=== PATIENT | female | born 1985 | race Caucasian/White ===

== ENCOUNTER 2022-11-19 17:52 | Inpatient (IN) | payer BC ==
[~2022-11-19 17:52] MED LIST: Iopamidol 300 61% 100 ML VIAL FS ONE
[2022-11-19 19:39] LABS: Hematocrit 41.3 % (34.9-44.5); Hemoglobin 14.6 g/dL (12.0-15.5); Mean Corpuscular HGB CONC 35.4 g/dL (32.0-36.0); Mean Corpuscular Hemoglobin 29.1 pg (27.0-33.0); Mean Corpuscular Volume 82.4 fl (81.6-98.3); Mean Platelet Volume 10.4 fl (7.4-10.4); Platelet Count 93 10x3/uL (150-450); RBC Distribution Width 12.5 % (11.5-14.5); Red Blood Cell (RBC) Count 5.01 10x6/uL (3.90-5.03); White Blood Cell (WBC) Count 1.8 10x3/uL (3.5-10.5)
[2022-11-19 19:43] LABS: Bilirubin Neg (Negative); Blood, Urine Negative (Negative); Clarity Clear (Clear); Glucose, Urine (Dipstick) Normal (Negative); Ketone, Urine 50 mg/dL (Negative); Leukocyte Negative (Negative); Nitrite Negative (Negative); Protein, Urine (Dipstick) 15 mg/dl (Neg-Trace); Specific Gravity, Urine 1.015 (1.005-1.030); Urobilinogen Normal mg/dL (Less than 2)
[2022-11-19 19:44] LABS: ALT (SGPT) 136 U/L (8-55); AST (SGOT) 144 U/L (5-34); Alkaline Phosphatase 65 U/L (40-110); Anion Gap 13 mmol/L (10-20); BUN (Urea Nitrogen) 6 mg/dL (7.0-18.7); Bilirubin, Total 0.4 mg/dL (0.2-1.2); Calc. Creatinine Clearance 0 mL/min (70-130); Calcium 8.3 mg/dL (7.8-10.44); Carbon Dioxide 21 mmol/L (22-29); Chloride 102 mmol/L (98-107); Estimated GFR 107; Globulin 2.2 g/dL (2.4-3.5); Glucose 84 mg/dL (70-105); Potassium 3.2 mmol/L (3.5-5.1); Protein, Total 6.2 g/dL (6.0-8.3); Sodium 133 mmol/L (136-145)
[2022-11-19] MEDS ORDERED: Ketorolac Tromethamine 30 MG/ML VIAL ONE (19:44)
[2022-11-19] MEDS ORDERED: Piperacillin/Tazobactam 4.5 GM VIAL ONE (19:45)
[2022-11-19 19:53] LABS: Bacteria/HPF 2+ HPF (None Seen); CAUTI Indications for Culture Fever or rigors; RBC/HPF 0-3 HPF (0-3); Squamous Epithelial 0-3 HPF (0-3); WBC/HPF 0-3 HPF (0-3)
[2022-11-19 19:54] LABS: Urine Culture Reflex No No
[2022-11-19 20:03] LABS: BHCG - Serum Negative (NEGATIVE); Pregs Control Background? CLEAR/WHITE (CLR/WHITE); Pregs Control Bar Appear? YES (CONTROL BAR)
[2022-11-19 20:06] LABS: MDiff Complete? YES
[2022-11-19 20:13] LABS: Eosinophils 7 % (0-10); Lymphocytes 16 % (21-51); Neutrophil 53 % (42-75); Reactive Lymphocytes 6 % (0-10)
[2022-11-19 20:14] LABS: Band 12 % (5-11); Monocytes 6 % (0-10)
[2022-11-19] MEDS ORDERED: Vancomycin 1.5 GRAM/300 ML BAG 1.5 GM in Premix Bag 1 BAG IVPB SCH (20:15)
[2022-11-19 20:19] LABS: Platelet Adequacy Comment Appears Decreased; RBC Morph Comment Within Normal Limits
[2022-11-19 20:23] LABS: Reflex for Review?? YES
[2022-11-19 20:24] LABS: SARS-CoV-2 NAA Rapid Test Not Detected (NotDetected)
[2022-11-19 20:57] LABS: MONO NEGATIVE CONTROL ZONE White (Negative) (White); MONO POSITIVE CONTROL Pink Line (Positive) (PINK/RED); Mononucleosis NEGATIVE (NEGATIVE)
[2022-11-19] MEDS ORDERED: Calcium Carbonate 500 MG ChewTAB PO PRN (21:57)
[2022-11-19] MEDS ORDERED: Ibuprofen 400 MG TAB PO PRN (22:06)
[2022-11-19 22:27] VITALS: BMI 30.5
[2022-11-19] MEDS ORDERED: Potassium Chloride 20 MEQ TAB PO SCH (22:30)
[2022-11-19] MEDS: Lactated Ringer's 1,000 ML IV SCH (22:41)
[2022-11-19 22:55] LABS: Acetaminophen Less than 10 mcg/mL (10.0-30.0)
[2022-11-19] MEDS: Azithromycin 500 MG in Sodium Chloride 0.9% 250 ML 250 ML IVPB SCH (23:38)
[2022-11-20 00:01] LABS: HIV (1/2) Antibody/Antigen Non-Reactive (NonReactive); HIV 1/2 INDEX 0.11 S/CO (<1.00)
[2022-11-20 03:48] LABS: #Monocytes 0.2 10x3/uL (0.0-1.1); #Neutrophils 1.3 10x3/uL (1.5-8.4); %Basophils 0.5 % (0.0-2.0); %Eosinophils 1.9 % (0.0-6.0); %Lymphocytes 25.7 % (18.0-47.0); %Monocytes 7.3 % (0.0-10.0); %Neutrophils 63.6 % (40.0-75.0); Hematocrit 42.2 % (34.9-44.5); Hemoglobin 14.6 g/dL (12.0-15.5); Mean Corpuscular HGB CONC 34.8 g/dL (32.0-36.0); Mean Corpuscular Hemoglobin 29.6 pg (27.0-33.0); Mean Platelet Volume 10.7 fl (7.4-10.4); Platelet Count 70 10x3/uL (150-450); RBC Distribution Width 12.6 % (11.5-14.5); Red Blood Cell (RBC) Count 4.94 10x6/uL (3.90-5.03); White Blood Cell (WBC) Count 2.1 10x3/uL (3.5-10.5)
[2022-11-20 03:55] LABS: ALT (SGPT) 151 U/L (8-55); AST (SGOT) 158 U/L (5-34); Albumin 3.8 g/dL (3.5-5.0); Alkaline Phosphatase 61 U/L (40-110); Anion Gap 12 mmol/L (10-20); BUN (Urea Nitrogen) 6 mg/dL (7.0-18.7); Bilirubin, Total 0.4 mg/dL (0.2-1.2); Calc. Creatinine Clearance 174 mL/min (70-130); Calcium 7.8 mg/dL (7.8-10.44); Carbon Dioxide 23 mmol/L (22-29); Chloride 107 mmol/L (98-107); Estimated GFR 114; Globulin 1.8 g/dL (2.4-3.5); Glucose 73 mg/dL (70-105); Lipase 115 U/L (8-78); Potassium 3.2 mmol/L (3.5-5.1); Protein, Total 5.6 g/dL (6.0-8.3); Sodium 139 mmol/L (136-145)
[2022-11-20] MEDS: metroNIDAZOLE 500 MG in Premix Bag 1 BAG IVPB SCH ×3 (05:28→22:37)
[2022-11-20] MEDS: Ondansetron PF 4 MG/2 ML Vial IVP PRN (06:54)
[2022-11-20] MEDS ORDERED: Morphine 2 MG/ML VIAL SLOW IVP SCH ×2 (07:15)
[2022-11-20] MEDS ORDERED: Famotidine/PF 20 mg/2ml Vial SLOW IVP SCH (09:00)
[2022-11-20] MEDS: Piperacillin/Tazobactam 3.375 GM in Sodium Chloride 0.9% 100 ML IVPB SCH ×2 (09:20→18:17)
[2022-11-20] MEDS: traMADol HCl 50 MG TAB PO PRN ×2 (09:21→16:22)
[2022-11-20] MEDS: Pregabalin 50 MG CAP PO SCH (09:21)
[2022-11-20] MEDS: DULoxetine 20 MG CAP PO SCH (09:21)
[2022-11-20] MEDS: Pantoprazole 40 MG VIAL IVP SCH (09:22)
[2022-11-20] MEDS: Lactated Ringer's 1,000 ML IV SCH ×3 (09:22→22:37)
[2022-11-20] MEDS ORDERED: Dicyclomine 20 MG TAB PO PRN (10:35)
[2022-11-20 14:05] LABS: HBCM Index 0.05 S/CO (0-0.79); Hep A IgM AB Non-Reactive S/CO (NonReactive); Hep A IgM S/CO 0.23 S/CO (0-0.79); Hep C IgG Ab Non-Reactive S/CO (NonReactive); Hep C Index 0.04 S/CO (0-0.79); Hepatitis B Core IgM Abs Non-Reactive S/CO (NonReactive)
[2022-11-20 16:12] LABS: HBSAg Index 0.26 S/CO (0-0.99); Hep B Surf Ag Non-Reactive S/CO (NonReactive)
[2022-11-20] MEDS: Azithromycin 500 MG in Sodium Chloride 0.9% 250 ML 250 ML IVPB SCH (22:37)
[2022-11-21] MEDS ORDERED: Loperamide HCl 2 MG CAP PO PRN (00:12)
[2022-11-21] MEDS: traMADol HCl 50 MG TAB PO PRN ×3 (00:19→22:37)
[2022-11-21] MEDS: Ondansetron PF 4 MG/2 ML Vial IVP PRN (00:43)
[2022-11-21] MEDS: Lactated Ringer's 1,000 ML IV SCH (07:58)
[2022-11-21] MEDS: Pregabalin 50 MG CAP PO SCH (09:35)
[2022-11-21] MEDS: Pantoprazole 40 MG VIAL IVP SCH (09:36)
[2022-11-21] MEDS: Azithromycin 250 MG TAB PO SCH (09:36)
[2022-11-21] MEDS: DULoxetine 20 MG CAP PO SCH (09:36)
[2022-11-21 10:41] LABS: EBV VCA IgM <36.0 U/mL (0.0-35.9); Nuclear AG IgG (EBNA) AB >600.0 U/mL (0.0-17.9)
[2022-11-21] MEDS ORDERED: Furosemide 40 MG/4 ML VIAL SLOW IVP SCH (11:15)
[2022-11-21 11:46] LABS: Hematocrit 38.9 % (34.9-44.5); Hemoglobin 13.3 g/dL (12.0-15.5); Mean Corpuscular HGB CONC 34.2 g/dL (32.0-36.0); Mean Corpuscular Hemoglobin 29.3 pg (27.0-33.0); Mean Corpuscular Volume 85.7 fl (81.6-98.3); Mean Platelet Volume 11.8 fl (7.4-10.4); Platelet Count 27 10x3/uL (150-450); RBC Distribution Width 12.9 % (11.5-14.5); Red Blood Cell (RBC) Count 4.54 10x6/uL (3.90-5.03); White Blood Cell (WBC) Count 3.3 10x3/uL (3.5-10.5)
[2022-11-21 12:13] LABS: MDiff Complete? YES
[2022-11-21 12:18] LABS: Eosinophils 3 % (0-10); Lymphocytes 28 % (21-51); Metamyelocyte 1 % (0-0); Monocytes 2 % (0-10); Myelocyte 3 % (0-0); Neutrophil 57 % (42-75); Reactive Lymphocytes 6 % (0-10)
[2022-11-21 12:20] LABS: Large Platelets SLIGHT (None Seen); RBC Morph Comment Within Normal Limits; Vacuoles SLIGHT
[2022-11-21 12:21] LABS: Platelet Adequacy Comment Platelets Decreased
[2022-11-21 12:34] LABS: ALT (SGPT) 104 U/L (8-55); AST (SGOT) 106 U/L (5-34); Albumin 3.1 g/dL (3.5-5.0); Alkaline Phosphatase 54 U/L (40-110); Anion Gap 12 mmol/L (10-20); BUN (Urea Nitrogen) 4 mg/dL (7.0-18.7); Bilirubin, Total 0.4 mg/dL (0.2-1.2); Calc. Creatinine Clearance 223 mL/min (70-130); Calcium 7.8 mg/dL (7.8-10.44); Carbon Dioxide 21 mmol/L (22-29); Chloride 112 mmol/L (98-107); Estimated GFR 121; Glucose 81 mg/dL (70-105); Potassium 3.7 mmol/L (3.5-5.1); Protein, Total 5.1 g/dL (6.0-8.3); Sodium 141 mmol/L (136-145)
[2022-11-21] MEDS ORDERED: Ipratropium/Albuterol 3 ML NEB ONE (15:13)
[2022-11-21] MEDS: Ipratropium/Albuterol 3 ML NEB NEB SCH ×2 (15:15→18:22)
[2022-11-21] MEDS: Acetaminophen 325 MG TAB PO PRN (16:49)
[2022-11-21] MEDS ORDERED: diphenhydrAMINE 25 MG CAP PO PRN (21:55)
[2022-11-22] MEDS: Ipratropium/Albuterol 3 ML NEB NEB SCH ×2 (00:53→07:30)
[2022-11-22] MEDS ORDERED: Calamine/Zinc Oxide 177 ML LOTION TP SCH (01:30)
[2022-11-22] MEDS ORDERED: hydrOXYzine 25 MG TAB PO SCH (01:30)
[2022-11-22] MEDS: Acetaminophen 325 MG TAB PO PRN (04:00)
[2022-11-22 04:44] LABS: Hematocrit 38.4 % (34.9-44.5); Hemoglobin 13.2 g/dL (12.0-15.5); Mean Corpuscular HGB CONC 34.4 g/dL (32.0-36.0); Mean Corpuscular Hemoglobin 29.3 pg (27.0-33.0); Mean Corpuscular Volume 85.3 fl (81.6-98.3); Platelet Count 35 10x3/uL (150-450); RBC Distribution Width 12.8 % (11.5-14.5); White Blood Cell (WBC) Count 3.5 10x3/uL (3.5-10.5)
[2022-11-22 04:45] LABS: MDiff Complete? YES
[2022-11-22 04:49] LABS: ALT (SGPT) 109 U/L (8-55); AST (SGOT) 107 U/L (5-34); Albumin 3.4 g/dL (3.5-5.0); Alkaline Phosphatase 60 U/L (40-110); Anion Gap 15 mmol/L (10-20); BUN (Urea Nitrogen) Less than 4 mg/dL (7.0-18.7); Bilirubin, Total 0.4 mg/dL (0.2-1.2); Calc. Creatinine Clearance 208 mL/min (70-130); Carbon Dioxide 25 mmol/L (22-29); Chloride 106 mmol/L (98-107); Estimated GFR 118; Globulin 1.9 g/dL (2.4-3.5); Glucose 83 mg/dL (70-105); Protein, Total 5.3 g/dL (6.0-8.3); Sodium 143 mmol/L (136-145)
[2022-11-22 05:31] LABS: Band 2 % (5-11); Eosinophils 4 % (0-10); Lymphocytes 34 % (21-51); Monocytes 5 % (0-10); Neutrophil 44 % (42-75); Reactive Lymphocytes 11 % (0-10)
[2022-11-22 05:35] LABS: Platelet Adequacy Comment Appears Decreased; RBC Morph Comment Within Normal Limits
[2022-11-22] MEDS: traMADol HCl 50 MG TAB PO PRN (05:52)
[2022-11-22] MEDS ORDERED: Promethazine HCl 12.5 MG in Sodium Chloride 0.9% 50 ML IVPB PRN (08:54)
[2022-11-22] MEDS ORDERED: Ketorolac Tromethamine 30 MG/ML VIAL IVP SCH (09:00)
[2022-11-22] MEDS: Pregabalin 50 MG CAP PO SCH (09:36)
[2022-11-22] MEDS: Azithromycin 250 MG TAB PO SCH (09:36)
[2022-11-22] MEDS: DULoxetine 20 MG CAP PO SCH (09:37)
[2022-11-22] MEDS: Potassium Chloride 20 MEQ TAB PO SCH ×2 (09:37→17:33)
[2022-11-22] MEDS: Ipratropium/Albuterol 3 ML NEB NEB PRN (13:20)
[2022-11-22] MEDS ORDERED: Potassium Chloride 20 MEQ TAB PO SCH (18:00)
[2022-11-22] MEDS ORDERED: Promethazine HCl 25 MG in Sodium Chloride 0.9% 50 ML IVPB SCH (20:00)
[2022-11-22 20:36] LABS: Adenovirus F 40-41 Not Detected (Not Detected); Astrovirus Not Detected (Not Detected); C. difficile toxin A+B Not Detected (Not Detected); Campylobacter by PCR Not Detected (Not Detected); Cryptosporidium Not Detected (Not Detected); Cyclospora cayetanensis Not Detected (Not Detected); Entamoeba histolytica Not Detected (Not Detected); Enteroaggregative E. coli Not Detected (Not Detected); Enteropathogenic E. coli DETECTED (Not Detected); Enterotoxigenic E. coli Not Detected (Not Detected); Giardia lamblia Not Detected (Not Detected); Norovirus GI-GII Not Detected (Not Detected); Plesiomonas shigelloides Not Detected (Not Detected); Rotavirus A Not Detected (Not Detected); Salmonella Not Detected (Not Detected); Sapovirus Not Detected (Not Detected); Shiga-toxin-producing E coli Not Detected (Not Detected); Shigella/Enteroinvasive E coli Not Detected (Not Detected); Vibrio Not Detected (Not Detected); Vibrio cholerae Not Detected (Not Detected); Yersinia enterocolitica Not Detected (Not Detected)
[2022-11-22 21:37] LABS: CMV DNA-PCR Test Negative (Negative)
[2022-11-23 04:30] LABS: ALT (SGPT) 126 U/L (8-55); AST (SGOT) 125 U/L (5-34); Albumin 3.3 g/dL (3.5-5.0); Alkaline Phosphatase 62 U/L (40-110); Anion Gap 12 mmol/L (10-20); BUN (Urea Nitrogen) 4 mg/dL (7.0-18.7); Bilirubin, Total 0.4 mg/dL (0.2-1.2); Calc. Creatinine Clearance 228 mL/min (70-130); Calcium 8.2 mg/dL (7.8-10.44); Carbon Dioxide 23 mmol/L (22-29); Chloride 110 mmol/L (98-107); Estimated GFR 121; Globulin 1.9 g/dL (2.4-3.5); Glucose 75 mg/dL (70-105); Potassium 3.9 mmol/L (3.5-5.1); Protein, Total 5.2 g/dL (6.0-8.3); Sodium 141 mmol/L (136-145)
[2022-11-23 04:34] LABS: Hematocrit 39.3 % (34.9-44.5); Hemoglobin 13.1 g/dL (12.0-15.5); Mean Corpuscular HGB CONC 33.3 g/dL (32.0-36.0); Mean Corpuscular Hemoglobin 28.9 pg (27.0-33.0); Mean Corpuscular Volume 86.6 fl (81.6-98.3); Mean Platelet Volume 12.2 fl (7.4-10.4); Platelet Count 73 10x3/uL (150-450); RBC Distribution Width 12.9 % (11.5-14.5); Red Blood Cell (RBC) Count 4.54 10x6/uL (3.90-5.03); White Blood Cell (WBC) Count 2.8 10x3/uL (3.5-10.5)
[2022-11-23] MEDS: Ipratropium/Albuterol 3 ML NEB NEB PRN (04:38)
[2022-11-23 05:27] LABS: MDiff Complete? YES
[2022-11-23 05:32] LABS: Platelet Adequacy Comment Appears Decreased; RBC Morph Comment Within Normal Limits
[2022-11-23 05:34] LABS: Band 4 % (5-11); Eosinophils 8 % (0-10); Lymphocytes 41 % (21-51); Monocytes 10 % (0-10); Neutrophil 37 % (42-75)
[2022-11-23] MEDS: traMADol HCl 50 MG TAB PO PRN (07:25)
[2022-11-23] MEDS: Acetaminophen 325 MG TAB PO PRN (09:23)
[2022-11-23 09:24] VITALS: BP 124/78; TEMP 98.3
[2022-11-23] MEDS: DULoxetine 20 MG CAP PO SCH (09:24)
[2022-11-23] MEDS: Pregabalin 50 MG CAP PO SCH (09:24)
== END 2022-11-23 11:30 | disposition home or self-care (01) | DRG 872 ==
LOC: CSHERS 17:52 → CSHTELE 22:12
PROVIDERS: ADMIT Student in an Organized Health Care Education/Training Program; ATTEND Internal Medicine
DX: A41.9 Sepsis, unspecified organism (principal); D61.818 Other pancytopenia; Z20.822 Contact with and (suspected) exposure to COVID-19; R74.01 Elevation of levels of liver transaminase levels; D69.6 Thrombocytopenia, unspecified; E87.6 Hypokalemia; G35 Multiple sclerosis; Z88.6 Allergy status to analgesic agent; Z98.84 Bariatric surgery status; Z80.9 Family history of malignant neoplasm, unspecified; K52.9 Noninfective gastroenteritis and colitis, unspecified
CPT/HCPCS: 36415; 36416; 70450; 71045; 74177; 80053; 80074; 80143; 81001; 82274; 83605; 83630; 83690; 84703; 85025; 85060; 85652; 86140; 86308; 86403; 86664; 86665; 87015; 87040; 87086; 87206; 87207; 87324; 87328; 87329; 87389; 87449; 87497; 87507; 87798; 94640; 94760; 80307; C9113; J0456; J1885; J1940; J2405; J2543; J2550; J3370; J3490; J7050; J7120; J7620; Q9967